=== PATIENT | female | born 2000 | race Two or more races ===

== ENCOUNTER 2019-10-13 04:30 | Emergency (ER) | payer OTHER ==
[2019-10-13] MEDS ORDERED: Ketorolac Tromethamine 30 MG/ML VIAL ONE (04:58)
[2019-10-13] MEDS ORDERED: Metoclopramide HCl 10 MG/2 ML VIAL ONE (04:58)
[2019-10-13] MEDS ORDERED: diphenhydrAMINE 50 MG/ML VIAL ONE (04:58)
== END 2019-10-13 05:51 | disposition home or self-care (01) ==
LOC: ERS 04:30
DX: R51 Headache (principal); J45.909 Unspecified asthma, uncomplicated
CPT/HCPCS: J1200; J1885; J2765

== ENCOUNTER 2024-11-22 12:37 | Outpatient (CLI) | payer OTHER | END 2024-11-22 12:38 | disposition home or self-care (01) | LOC: BICULT 12:37 | PROVIDERS: ATTEND Physician Assistant | DX: N91.2 Amenorrhea, unspecified (principal); N83.8 Other noninflammatory disorders of ovary, fallopian tube and broad ligament | CPT/HCPCS: 76856 ==